=== PATIENT | female | born 1945 | race Caucasian/White ===

== ENCOUNTER 2021-07-20 07:57 | Observation (INO) ==
[2021-07-20] MEDS ORDERED: ASPIRIN CHEW 324 MG PO STA (08:16)
[2021-07-20] MEDS ORDERED: ALBUTEROL 0.5% NEB SOLN 2.5 MG/0.5 ML VIAL NEB STA (08:19)
[2021-07-20] MEDS ORDERED: methylPREDNISolone 125 MG/2 ML VIAL IV STA (08:20)
[2021-07-20 08:34] LABS: Basophils # (auto) 0.02 K/uL (0-0.2); Basophils % (auto) 0.1 %; Eosinophils # (auto) 0.19 K/uL (0-0.5); Eosinophils % (auto) 0.9 %; Hematocrit (blood only) 39.2 % (37-47); Hemoglobin 12.9 g/dL (12.0-16.0); Immature Granulocytes # (auto) 0.24 K/uL (0.00-0.02); Immature Granulocytes % (auto) 1.1 %; Lymphocytes # (auto) 3.37 K/uL (1.2-3.4); Lymphocytes % (auto) 15.4 %; Mean Corpuscular Hemoglobin 29.1 pg (25-34); Mean Corpuscular Hgb Conc 32.9 g/dL (32-36); Mean Corpuscular Volume 88.5 fL (80-100); Mean Platelet Volume 8.5 fL (7.4-10.4); Monocytes # (auto) 1.73 K/uL (0.11-0.59); Monocytes % (auto) 7.9 %; Neutrophils # (auto) 16.38 K/uL (1.4-6.5); Neutrophils % (auto) 74.6 %; Platelet Count 463 K/uL (130-400); RDW Coefficient of Variation 13.7 % (11.5-14.5); RDW Standard Deviation 44.8 fL (36.4-46.3); Red Blood Count 4.43 M/uL (4.2-5.4); White Blood Count 21.93 K/uL (4.8-10.8)
[2021-07-20 08:45] LABS: Partial Thromboplastin Ratio 0.9; Partial Thromboplastin Time 23.6 Seconds (21.0-31.0)
--- NOTE | 2021-07-20 08:49 | XRay Report ---
XR chest 1V portable CLINICAL HISTORY: Dysrhythmia TECHNIQUE: Single frontal radiograph of the chest was obtained. Comparison: None available at the time of this dictation. FINDINGS: No lines and tubes are seen. Calcified aortic knob is seen. The lungs are clear. No evidence of pleur al effusion or pneumothorax. IMPRESSION: No acute chest disease. ACT 112: Negative or not required by law. Electronically signed by: Rick Wade M.D. 07/20/2021 8:48 AM
[2021-07-20 08:52] LABS: Albumin Level 3.3 gm/dl (3.4-5.0); Potassium 3.7 mmol/L (3.5-5.1)
[2021-07-20] MEDS ORDERED: CEFEPIME 2,000 MG/20 ML VIAL IV STA (09:25)
[2021-07-20 09:30] LABS: Influenza A virus by PCR Negative (Neg); Influenza B virus by PCR Negative (Neg); RSV by PCR Negative (Neg); SARS CoV2 RNA(COVID-19) InHosp NEGATIVE (Negative)
--- NOTE | 2021-07-20 09:43 | Emergency Department Note ---
Impression & Plan Pneumonia ED Provider Note CHIEF COMPLAINT: SOB HISTORY OF PRESENT ILLNESS: This 76 yo female patient presents to the emergency department who presents emergency department with complaints of shortness of breath and cough. Patient states she tested positive for influenza about a week ago. She has had a persistent cough and has been unable to see her primary care physician because of the positive testing. She is newer to our area and has only seen this practice 1 time previously to establish. Patient denies vomiting, chest pain, fevers and diarrhea. Her is at home and has r ecovered from the flu already. She did try to go back to work today and was unable to get through the day. REVIEW OF SYSTEMS: A review of systems was performed with positives and pertinent negatives listed in the history of present illness. 10 systems were reviewed and are otherwise negative. ALLERGIES: see below MEDICATIONS: see below PMH: see below SOCIAL HISTORY: see below DDx: Reactive airway disease, pneumonia, pneumothorax, COPD, CHF, infections, cardiac ischemia, pulmonary embolism, musculoskeletal, gastrointestinal, as well as other pathologies. PHYSICAL EXAM: Vital signs reviewed. General: Somewhat appearing 76-year-old female, in no significant distress. HEENT: No scleral icterus, PERRLA, neck supple. Atraumatic. Cardiovascular: Tachycardic and irregular, no extra sounds. Pulmonary: Clear to auscultation bilaterally, normal work of breathing. Dry cough Abdomen: Soft, nontender, nondistended, positive bowel sounds. Musculoskeletal: Atraumatic, no peripheral edema. Neurologic: Patient awake alert and oriented x 3, speech is clear Skin: Warm, dry, no rash EMERGENCY DEPARTMENT COURSE/MDM: This patient was evaluated and appeared to be in no distress. IV access was obtained and laboratory work was drawn. Was placed on the vehicle monitor technician noted to be in an atrial fibrillation with RVR at 114 bpm. Patient has tested negative for influenza at this time. Patient was given 5 mg of IV metoprolol which converted her rhythm to a normal sinus. She was given a dose of IV Solu-Medrol and a DuoNeb treatment. Patient was also given a dose of IV cefepime for pulmonary infiltrate on chest x-ray to my interpretation. Case management was consulted and were able to make follow-up appointment with the patient's PCP, which was the patient's preference. Given the atrial fibrillation on EKG, patient was given first dose of Eliquis and a p.o. dose of metoprolol. Prescriptions were written for antibiotics, Eliquis and metoprolol. She will follow-up with the PCP appointment in short interval and return to the ER for worsening of symptoms or any medical concerns. Patient had a prolonged observation in the emergency department due to transportation difficulties. She is awaiting her 's arrival to pick her up. MONITORING: An order for cardiac monitoring was placed and the patient is noted to be in a atrial fibrillation with RVR at 106 beats per minute. RADIOLOGY: See below EKG: Atrial fibrillation with rapid ventricular response at 114 bpm. Poor R wave progression, normal QTC 435. Normal ST segments. No previous for comparison. DISPOSITION: Home I have personally spent 35 minutes of critical care time in the direct management of this patient. This was a life/limb threatening event. This 35 minutes is in excess of all separately billable procedures. Past Med/Surg History Medical History HLD (hyperlipidemia) OAB (overactive bladder) Surgical History History of back surgery History of blepharoplasty History of bunionectomy History of section History of elbow surgery b/l tendon repair History of fusion of cervical spine History of hernia surgery History of hip surgery benign tumor removal History of hysterectomy History of partial amputation of toe hx of gangrene per pt Family History Sister Alzheimer disease Social History Smoking Status: Never smoker Hx Alcohol Use: No Hx Substance Use: No Preferred Language: Hungarian Communication Ability: Effective Leasing Director Required: No Beliefs That Will Affect Care: None marital status: Current Living Situation: Spouse Feels Safe at Home: Yes Assistive Devices: None Allergies Allergies Allergy/AdvReac Type Severity Reaction Status Date / Time metronidazole [From Flagyl] Allergy Severe hives Verified 07/20/21 16:47 Home Meds Home Medications Medication Instructions Recorded Confirmed Colon Health Probiotic 1 tab PO DAILY 07/20/21 07/20/21 Prevagen 1 tab PO DAILY 07/20/21 07/20/21 aspirin 81 mg tablet,delayed 81 mg PO DAILY 07/20/21 07/20/21 release calcium carbonate 600 mg-vitamin 1 tab PO DAILY 07/20/21 07/20/21 D3 5 mcg (200 unit) tablet coenzyme Q10 30 mg capsule (CoQ-10) 100 mg PO DAILY 07/20/21 07/20/21 krill 1,000 mg-omega-3 230 mg-dha 1 cap PO DAILY 07/20/21 07/20/21 60 qo-wis-mcshnsjad-astaxan capsule (MegaRed Nezperce-3 Krill Oil) polyethylene glycol 3350 17 gram 17 g PO DAILY 07/20/21 07/20/21 oral powder packet (Miralax) rosuvastatin 10 mg tablet 10 mg PO DAILY 07/20/21 07/20/21 trospium 60 mg capsule,extended 60 mg PO DAILY 07/20/21 07/20/21 release 24 hr Previous Rx's Medication Instructions Recorded amoxicillin 875 mg-potassium 1 tab PO BID 4 Days #8 tab 07/23/21 clavulanate 125 mg tablet guaifenesin 200 mg tablet 200 mg PO TID PRN #30 tab 07/23/21 levalbuterol HCl 0.63 mg/3 mL 0.63 mg NEB Q6R PRN #90 ml 07/23/21 solution for nebulization Results & Data (ED) Vital Signs Vital Signs - 24 hr 07/20/21 07:59 Pulse Rate 95 H Pulse Rhythm Regular Pulse Strength Normal Respiratory Rate 20 Respiratory Depth Normal Blood Pressure 148/82 H Blood Pressure Mean 104 Blood Pressure Position Lying Pulse Oximetry 94 Oxygen Delivery Method Room Air Sepsis New/Unexplained Change in Mental Status No Sepsis Action Taken by Nursing No Action Required Home Medications Current Medication List: was personally reviewed by me Laboratory Data Attestation: I reviewed the patient's lab results. Result diagrams: 07/23/21 06:04 07/22/21 12:35 Lab Results 07/20/21 07/20/21 07/20/21 Range/Units 08:15 08:15 08:15 WBC 21.93 H (4.8-10.8) K/uL RBC 4.43 (4.2-5.4) M/uL Hgb 12.9 (12.0-16.0) g/dL Hct 39.2 (37-47) % MCV 88.5 (80-100) fL MCH 29.1 (25-34) pg MCHC 32.9 (32-36) g/dL RDW Std Deviation 44.8 (36.4-46.3) fL RDW Coeff of [place] 13.7 (11.5-14.5) % Plt Count 463 H (130-400) K/uL MPV 8.5 (7.4-10.4) fL Immature Gran % (Auto) 1.1 % Neut % (Auto) 74.6 % Lymph % (Auto) 15.4 % [place] % (Auto) 7.9 % Eos % (Auto) 0.9 % Baso % (Auto) 0.1 % Neut # (Auto) 16.38 H (1.4-6.5) K/uL Lymph # (Auto) 3.37 (1.2-3.4) K/uL [place] # (Auto) 1.73 H (0.11-0.59) K/uL Eos # (Auto) 0.19 (0-0.5) K/uL Baso # (Auto) 0.02 (0-0.2) K/uL Immature Gran # (Auto) 0.24 H (0.00-0.02) K/uL PT 11.0 (9.0-12.0) Seconds INR 1.0 (0.9-1.1) APTT 23.6 (21.0-31.0) Seconds PTT Ratio 0.9 Sodium (136-145) mmol/L Potassium (3.5-5.1) mmol/L Chloride (98-107) mmol/L Carbon Dioxide (21-32) mmol/L Anion Gap (3-11) BUN (6-23) mg/dl Creatinine (0.6-1.2) mg/dl Est Cr Clr Drug Dosing ml/min Est GFR ( Amer) ml/min Est GFR (Non-Af Amer) ml/min BUN/Creatinine Ratio (10-20) Glucose (70-99(Fasting)) mg/dl Lactate (0.4-2.0) mmol/L Calcium (8.5-10.1) mg/dl Magnesium (1.7-2.4) mg/dl Total Bilirubin (0.2-1.0) mg/dl AST (13-39) U/L ALT (7-52) U/L Alkaline Phosphatase (34-104) U/L Troponin I High Sens 16.0 H (0-14) pg/ml Total Protein (6.0-8.3) gm/dl Albumin (3.4-5.0) gm/dl Globulin (2.5-4.0) gm/dl Albumin/Globulin Ratio (0.9-2) TSH (0.300-4.500) uIu/ml SARS-CoV-2 (PCR) (Negative) Influenza Type A (PCR) (Neg) Influenza Type B (PCR) (Neg) RSV (RT-PCR) (Neg) 07/20/21 07/20/21 07/20/21 Range/Units 08:15 08:15 08:27 WBC (4.8-10.8) K/uL RBC (4.2-5.4) M/uL Hgb (12.0-16.0) g/dL Hct (37-47) % MCV (80-100) fL MCH (25-34) pg MCHC (32-36) g/dL RDW Std Deviation (36.4-46.3) fL RDW Coeff of [place] (11.5-14.5) % Plt Count (130-400) K/uL MPV (7.4-10.4) fL Immature Gran % (Auto) % Neut % (Auto) % Lymph % (Auto) % [place] % (Auto) % Eos % (Auto) % Baso % (Auto) % Neut # (Auto) (1.4-6.5) K/uL Lymph # (Auto) (1.2-3.4) K/uL [place] # (Auto) (0.11-0.59) K/uL Eos # (Auto) (0-0.5) K/uL Baso # (Auto) (0-0.2) K/uL Immature Gran # (Auto) (0.00-0.02) K/uL PT (9.0-12.0) Seconds INR (0.9-1.1) APTT (21.0-31.0) Seconds PTT Ratio Sodium 139 (136-145) mmol/L Potassium 3.7 (3.5-5.1) mmol/L Chloride 107 (98-107) mmol/L Carbon Dioxide 23 (21-32) mmol/L Anion Gap 9 (3-11) BUN 23 (6-23) mg/dl Creatinine 0.89 (0.6-1.2) mg/dl Est Cr Clr Drug Dosing 51.1 ml/min Est GFR ( Amer) 73.5 ml/min Est GFR (Non-Af Amer) 63.4 ml/min BUN/Creatinine Ratio 25.8 H (10-20) Glucose 93 (70-99(Fasting)) mg/dl Lactate (0.4-2.0) mmol/L Calcium 8.6 (8.5-10.1) mg/dl Magnesium 2.0 (1.7-2.4) mg/dl Total Bilirubin 0.8 (0.2-1.0) mg/dl AST 15 (13-39) U/L ALT 20 (7-52) U/L Alkaline Phosphatase 56 (34-104) U/L Troponin I High Sens (0-14) pg/ml Total Protein 6.4 (6.0-8.3) gm/dl Albumin 3.3 L (3.4-5.0) gm/dl Globulin 3.1 (2.5-4.0) gm/dl Albumin/Globulin Ratio 1.1 (0.9-2) TSH 2.581 (0.300-4.500) uIu/ml SARS-CoV-2 (PCR) NEGATIVE (Negative) Influenza Type A (PCR) Negative (Neg) Influenza Type B (PCR) Negative (Neg) RSV (RT-PCR) Negative (Neg) 07/20/21 07/20/21 Range/Units 10:14 10:14 WBC (4.8-10.8) K/uL RBC (4.2-5.4) M/uL Hgb (12.0-16.0) g/dL Hct (37-47) % MCV (80-100) fL MCH (25-34) pg MCHC (32-36) g/dL RDW Std Deviation (36.4-46.3) fL RDW Coeff of [place] (11.5-14.5) % Plt Count (130-400) K/uL MPV (7.4-10.4) fL Immature Gran % (Auto) % Neut % (Auto) % Lymph % (Auto) % [place] % (Auto) % Eos % (Auto) % Baso % (Auto) % Neut # (Auto) (1.4-6.5) K/uL Lymph # (Auto) (1.2-3.4) K/uL [place] # (Auto) (0.11-0.59) K/uL Eos # (Auto) (0-0.5) K/uL Baso # (Auto) (0-0.2) K/uL Immature Gran # (Auto) (0.00-0.02) K/uL PT (9.0-12.0) Seconds INR (0.9-1.1) APTT (21.0-31.0) Seconds PTT Ratio Sodium (136-145) mmol/L Potassium (3.5-5.1) mmol/L Chloride (98-107) mmol/L Carbon Dioxide (21-32) mmol/L Anion Gap (3-11) BUN (6-23) mg/dl Creatinine (0.6-1.2) mg/dl Est Cr Clr Drug Dosing ml/min Est GFR ( Amer) ml/min Est GFR (Non-Af Amer) ml/min BUN/Creatinine Ratio (10-20) Glucose (70-99(Fasting)) mg/dl Lactate 0.7 (0.4-2.0) mmol/L Calcium (8.5-10.1) mg/dl Magnesium (1.7-2.4) mg/dl Total Bilirubin (0.2-1.0) mg/dl AST (13-39) U/L ALT (7-52) U/L Alkaline Phosphatase (34-104) U/L Troponin I High Sens 14.1 H (0-14) pg/ml Total Protein (6.0-8.3) gm/dl Albumin (3.4-5.0) gm/dl Globulin (2.5-4.0) gm/dl Albumin/Globulin Ratio (0.9-2) TSH (0.300-4.500) uIu/ml SARS-CoV-2 (PCR) (Negative) Influenza Type A (PCR) (Neg) Influenza Type B (PCR) (Neg) RSV (RT-PCR) (Neg) Administered Medications Discontinued Medications Acetylcysteine (Acetylcysteine 10% Inhal Soln 4 Ml Dispensed By Resp.) 5 ml INH BIDR PALLAVI Stop: 08/21/21 06:59 Last Admin: 07/23/21 07:10 Dose: 5 ml Documented by: [id number] Admin: 07/22/21 19:25 Dose: 5 ml Documented by: [id number] Admin: 07/22/21 07:06 Dose: 5 ml Documented by: [id number] Albuterol (Albuterol 0.5% Neb Soln 2.5 Mg/0.5 Ml Vial) 2.5 mg NEB NOW STA; Protocol Stop: 07/20/21 08:20 Last Admin: 07/20/21 08:26 Dose: 2.5 mg Documented by: [id number] Amoxicillin/Clavulanate Potassium (Amoxicillin/Clavulanate 875 Mg Tab) 1 tab PO BIDM [facility]; Protocol Stop: 07/27/21 08:01 Last Admin: 07/23/21 16:35 Dose: 1 tab Documented by: [id number] Apixaban (Apixaban 5 Mg Tablet) 5 mg PO NOW STA Stop: 07/20/21 12:45 Last Admin: 07/20/21 13:09 Dose: 5 mg Documented by: [id number] Aspirin (Aspirin Chew 324 Mg) 324 mg PO NOW STA Stop: 07/20/21 08:17 Last Admin: 07/20/21 08:25 Dose: 324 mg Documented by: [id number] Aspirin (Aspirin 81 Mg Ectab) 81 mg PO DAILY [facility] Stop: 08/20/21 08:59 Last Admin: 07/23/21 08:21 Dose: 81 mg Documented by: [id number] Cosigned by: [id number] Admin: 07/22/21 08:17 Dose: 81 mg Documented by: [id number] Admin: 07/21/21 08:39 Dose: 81 mg Documented by: [id number] Azithromycin (Azithromycin 250 Mg Tab) 500 mg PO HS [facility] Stop: 07/22/21 21:01 Last Admin: 07/22/21 22:43 Dose: 500 mg Documented by: [id number] Admin: 07/21/21 20:40 Dose: 500 mg Documented by: [id number] Admin: 07/20/21 20:16 Dose: 500 mg Documented by: [id number] Benzonatate (Benzonatate 100 Mg Capsule) 100 mg PO TID [facility] Stop: 08/19/21 20:59 Last Admin: 07/23/21 15:54 Dose: Not Given Documented by: [id number] Admin: 07/23/21 08:21 Dose: 100 mg Documented by: [id number] Cosigned by: [id number] Admin: 07/22/21 22:43 Dose: 100 mg Documented by: [id number] Admin: 07/22/21 14:10 Dose: 100 mg Documented by: [id number] Admin: 07/22/21 08:17 Dose: 100 mg Documented by: [id number] Admin: 07/21/21 20:40 Dose: 100 mg Documented by: [id number] Admin: 07/21/21 15:30 Dose: Not Given Documented by: [id number] Admin: 07/21/21 08:39 Dose: 100 mg Documented by: [id number] Admin: 07/20/21 20:29 Dose: 100 mg Documented by: [id number] Dextromethorphan Polymer Complex (Dextromethorphan Polymr Complx 30 Mg/5 Ml Udp) 30 mg PO Q12H PRN PRN Reason: Cough Stop: 08/19/21 18:38 Last Admin: 07/22/21 14:11 Dose: 30 mg Documented by: [id number] Admin: 07/21/21 15:34 Dose: 30 mg Documented by: [id number] Admin: 07/21/21 06:08 Dose: 30 mg Documented by: [id number] Enoxaparin Sodium (Enoxaparin Inj 40 Mg/0.4 Ml Syr) 40 mg SQ QAM PALLAVI Stop: 08/20/21 08:59 Last Admin: 07/23/21 08:22 Dose: 40 mg Documented by: [id number] Cosigned by: [id number] Admin: 07/22/21 10:59 Dose: 40 mg Documented by: [id number] Admin: 07/21/21 08:39 Dose: 40 mg Documented by: [id number] Guaifenesin/Codeine Phosphate (Guaifenesin/Codeine 100mg/10mg 5ml Udc) 10 ml PO HS PALLAVI Stop: 08/19/21 20:59 Last Admin: 07/22/21 22:43 Dose: 10 ml Documented by: [id number] Admin: 07/21/21 20:45 Dose: 10 ml Documented by: [id number] Admin: 07/20/21 20:29 Dose: 10 ml Documented by: [id number] Cefepime HCl (Maxipime) 2,000 mg in 20 mls @ 5 mls/min IV NOW STA; Protocol Stop: 07/20/21 09:28 Last Admin: 07/20/21 10:27 Dose: 5 mls/min Documented by: [id number] Piperacillin Sod/Tazobactam (Sod 3.375 gm/ Dextrose) 115 mls @ 230 mls/hr IV NOW ONE; Protocol Stop: 07/20/21 19:59 Last Infusion: 07/20/21 23:30 Dose: 0 mls/hr Documented by: [id number] Admin: 07/20/21 20:18 Dose: 230 mls/hr Documented by: [id number] Piperacillin Sod/Tazobactam (Sod 3.375 gm/ Dextrose) 115 mls @ 28.75 mls/hr IV Q8H PALLAVI; Protocol Stop: 07/28/21 00:00 Last Infusion: 07/23/21 13:20 Dose: 0 mls/hr Documented by: [id number] Admin: 07/23/21 08:20 Dose: 28.8 mls/hr Documented by: [id number] Cosigned by: [id number] Infusion: 07/23/21 05:10 Dose: 0 mls/hr Documented by: [id number] Admin: 07/23/21 00:18 Dose: 28.8 mls/hr Documented by: [id number] Infusion: 07/22/21 22:03 Dose: 0 mls/hr Documented by: [id number] Admin: 07/22/21 15:47 Dose: 28.8 mls/hr Documented by: [id number] Infusion: 07/22/21 11:36 Dose: 0 mls/hr Documented by: [id number] Admin: 07/22/21 07:28 Dose: 28.8 mls/hr Documented by: [id number] Infusion: 07/22/21 07:22 Dose: 0 mls/hr Documented by: [id number] Admin: 07/22/21 03:01 Dose: 28.8 mls/hr Documented by: [id number] Infusion: 07/21/21 20:43 Dose: 0 mls/hr Documented by: [id number] Admin: 07/21/21 15:38 Dose: 28.8 mls/hr Documented by: [id number] Infusion: 07/21/21 13:07 Dose: 0 mls/hr Documented by: [id number] Admin: 07/21/21 08:38 Dose: 28.8 mls/hr Documented by: [id number] Infusion: 07/21/21 04:00 Dose: 0 mls/hr Documented by: [id number] Admin: 07/20/21 23:58 Dose: 28.8 mls/hr Documented by: [id number] Ioversol (Optiray 320 125ml) 120 ml IV ONCE ONE Stop: 07/20/21 11:40 Last Admin: 07/20/21 11:40 Dose: 120 ml Documented by: [id number] Levalbuterol HCl (Levalbuterol Hcl 0.63 Mg/3 Ml Neb) 0.63 mg NEB Q6R PALLAVI; Protocol Stop: 08/19/21 18:59 Last Admin: 07/23/21 13:40 Dose: 0.63 mg Documented by: [id number] Admin: 07/23/21 07:10 Dose: 0.63 mg Documented by: [id number] Admin: 07/23/21 00:33 Dose: 0.63 mg Documented by: [id number] Admin: 07/22/21 19:25 Dose: 0.63 mg Documented by: [id number] Admin: 07/22/21 12:07 Dose: 0.63 mg Documented by: [id number] Admin: 07/22/21 07:06 Dose: 0.63 mg Documented by: [id number] Admin: 07/21/21 23:45 Dose: 0.63 mg Documented by: [id number] Admin: 07/21/21 19:40 Dose: 0.63 mg Documented by: [id number] Admin: 07/21/21 12:26 Dose: 0.63 mg Documented by: [id number] Admin: 07/21/21 06:58 Dose: 0.63 mg Documented by: [id number] Admin: 07/21/21 00:03 Dose: 0.63 mg Documented by: [id number] Admin: 07/20/21 19:29 Dose: 0.63 mg Documented by: [id number] Methylprednisolone (Methylprednisolone 125 Mg/2 Ml Vial) 60 mg IV NOW STA Stop: 07/20/21 08:21 Last Admin: 07/20/21 08:24 Dose: 60 mg Documented by: [id number] Metoprolol Succinate (Metoprolol Succ 25mg Ext Rel Tab) 25 mg PO NOW STA Stop: 07/20/21 12:46 Last Admin: 07/20/21 13:09 Dose: 25 mg Documented by: [id number] Miscellaneous (Trospium~Order Awaiting Action) 1 ea N/A QS PALLAVI Stop: 08/19/21 19:14 Last Admin: 07/23/21 15:55 Dose: Not Given Documented by: [id number] Admin: 07/23/21 08:25 Dose: Not Given Documented by: [id number] Admin: 07/23/21 01:13 Dose: 1 ea Documented by: [id number] Admin: 07/22/21 15:43 Dose: Not Given Documented by: [id number] Admin: 07/22/21 07:22 Dose: Not Given Documented by: [id number] Admin: 07/22/21 03:04 Dose: Not Given Documented by: [id number] Admin: 07/21/21 17:05 Dose: Not Given Documented by: [id number] Admin: 07/21/21 10:46 Dose: Not Given Documented by: [id number] Admin: 07/21/21 00:01 Dose: Not Given Documented by: [id number] Admin: 07/20/21 20:25 Dose: Not Given Documented by: [id number] Multivitamins/Minerals (Calcium 600mg + Vit D 400 Iu Tab) 1 tab PO DAILY PALLAVI Stop: 08/20/21 08:59 Last Admin: 07/23/21 08:22 Dose: 1 tab Documented by: [id number] Cosigned by: [id number] Admin: 07/22/21 08:17 Dose: 1 tab Documented by: [id number] Admin: 07/21/21 08:39 Dose: 1 tab Documented by: [id number] Polyethylene Glycol (Polyethylene (Miralax) 17 Gm Pack) 17 gm PO DAILY PALLAVI Stop: 08/20/21 08:59 Last Admin: 07/23/21 08:24 Dose: 17 gm Documented by: [id number] Cosigned by: [id number] Admin: 07/22/21 08:18 Dose: 17 gm Documented by: [id number] Admin: 07/21/21 08:40 Dose: 17 gm Documented by: [id number] Rosuvastatin Calcium (Rosuvastatin Calcium 10 Mg Tab) 10 mg PO DAILY PALLAVI Stop: 08/20/21 08:59 Last Admin: 07/23/21 08:24 Dose: 10 mg Documented by: [id number] Cosigned by: [id number] Admin: 07/22/21 08:17 Dose: 10 mg Documented by: [id number] Admin: 07/21/21 08:39 Dose: 10 mg Documented by: [id number] Imaging Data Radiologist's Impression: Chest X-Ray 07/20/21 08:16 XR chest 1V portable CLINICAL HISTORY: Dysrhythmia TECHNIQUE: Single frontal radiograph of the chest was obtained. Comparison: None available at the time of this dictation. FINDINGS: No lines and tubes are seen. Calcified aortic knob is seen. The lungs are clear. No evidence of pleural effusion or pneumothorax. IMPRESSION: No acute chest disease. ACT 112: Negative or not required by law. Electronically signed by: Rick Wade M.D. 07/20/2021 8:48 AM Blood Pressure Blood Pressure Findings: Normal blood pressure Discharge Plan Visit Data Chief Complaint: Shortness of Breath/Dyspnea Stated Complaint: SOB ED Provider: Chalo Martinez Discharge Problem: Pneumonia Patient Disposition: Admitted As Inpatient Condition: Good Discharge Instructions Interventions: ED Discharge Assessment Last Done: 07/20/21 18:31 Discharge Problem: Pneumonia Qualifiers: Pneumonia type: due to unspecified organism Laterality: bilateral Lung location: lower lobe of lung Qualified Code(s): J18.9 - Pneumonia, unspecified organism
[2021-07-20 09:51] LABS: Albumin Globulin Ratio 1.1 (0.9-2); BUN Creatinine Ratio 25.8 (10-20); Bilirubin,Total 0.8 mg/dl (0.2-1.0); Calcium 8.6 mg/dl (8.5-10.1); Creatinine Clr Calc Pharmacy 51.1 ml/min; Est GFR (African American) 73.5 ml/min; Est GFR (Non-African American) 63.4 ml/min; Globulin 3.1 gm/dl (2.5-4.0); Total Protein 6.4 gm/dl (6.0-8.3)
[2021-07-20] MEDS ORDERED: OPTIRAY 320 125ml IV ONE (11:39)
[2021-07-20] MEDS ORDERED: METOPROLOL TARTRATE 1 MG/ML VIAL IV, SCH (12:00)
[2021-07-20] MEDS ORDERED: METOPROLOL TARTRATE 1 MG/ML VIAL IV PRN (12:00)
--- NOTE | 2021-07-20 12:04 | CT Scan Report ---
CT ANGIOGRAPHY OF THE CHEST, PULMONARY EMBOLUS PROTOCOL CLINICAL HISTORY: Shortness of breath. Evaluate for pulmonary embolus. COMPARISON STUDY: Chest radiograph performed earlier today. TECHNIQUE: Following IV administration of 120 mL of Optiray, helical axial images of the chest were o btained utilizing the pulmonary embolus protocol. Maximal intensity projections and sagittal and cor onal reformats were viewed on an independent 3D workstation. IV contrast was administered without co mplication. Automated exposure control was utilized for the study. A dose lowering technique was ut ilized adhering to the principles of ALARA. CT DOSE: 245.46 mGycm FINDINGS: No pulmonary emboli are identified. The size of the heart is normal. There is no thoracic aortic dissection. No enlarged thoracic lymph nodes are present. No pneumomediastinum is present. The re is no pneumothorax or pleural effusion. Moderate multifocal tree-in-bud nodules are noted with mor e confluent consolidation within the left lower lobe. There is bilateral lower lobe and right middle lobe bronchial wall thickening and multifocal secretions. No cavitation is present. No acute fracture or suspicious lesion within the visualized bony thorax. There is a 2.3 cm hepatic cyst. IMPRESSION: 1. No pulmonary emboli identified. 2. Moderate multifocal tree-in-bud nodules with bilateral lower lobe consolidation, greater on the le ft. Associated bronchial wall thickening and secretions within the bilateral lower lobe and right mid dle lobe bronchi. The findings favor an infectious process. Other etiologies such as aspiration pneum onitis are within the differential but considered less likely. ACT 112: Negative or not required by law. Electronically signed by: Mike Mendosa M.D. 07/20/2021 12:02 PM
[2021-07-20] MEDS ORDERED: APIXABAN 5 MG TABLET PO STA (12:44)
[2021-07-20] MEDS ORDERED: METOPROLOL SUCC 25MG EXT REL TAB PO STA (12:45)
--- NOTE | 2021-07-20 15:38 | Electrocardiogram Report ---
Test Reason : Blood Pressure : / mmHG Vent. Rate : 114 BPM Atrial Rate : 147 BPM P-R Int : 000 ms QRS Dur : 062 ms QT Int : 316 ms P-R-T Axes : 000 045 -79 degrees QTc Int : 435 ms Atrial fibrillation with rapid ventricular response Poor R wave progression, consider anterior HI vs. lead placement vs. LVH Abnormal ECG No previous ECGs available Confirmed by Chalo Salinas ([id number]) on 07/20/2021 3:37:43 PM Referred By: Confirmed By:Chalo Salinas
--- NOTE | 2021-07-20 16:23 | Emergency Department Note ---
ED Visit Note The patient was seen initially by Dr. Elizondo. The patient was felt to be a good candidate for inpatient management because of a pulmonary infection as well as arrhythmia which would be a new onset for the patient. The patient was written to be discharged home and started on medications for dysrhythmia as well as pulmonary infection. She was treated in our emergency department with IV antibiotics. She was reevaluated by the nursing staff prior to discharge. The patient initially did not wish to stay in the hospital even though it was r ecommended by Dr. Elizondo. The patient's family members did get in contact with nursing and felt the patient was not a good candidate for outpatient management and asked us to discuss the case with the hospitalist group. I discussed this case with the on-call [facility] hospitalist group. I discussed the case with Mary. They have agreed to evaluate the patient in the emergency department for further management and disposition. The patient's EKG was thought to be consistent with atrial fibrillation. This EKG was reviewed by Dr. Salinas. The patient appears to have episodes of MAT on cardiac monitoring. Certainly this could find more to the patient's pulmonary status not being well enough for outpatient management. I discussed this finding with the hospitalist team as well. . : Pneumonia Qualifiers: Pneumonia type: due to unspecified organism Laterality: bilateral Lung location: lower lobe of lung Qualified Code(s): J18.9 - Pneumonia, unspecified organism
--- NOTE | 2021-07-20 17:44 | History & Physical Report ---
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 Bilateral lower lobe pneumonia with associated bronchial wall thickening Recent Influenza positive - tested positive at OSH 07/14 leukocytosis admit to pcu completed course of tamiflu and 2 prednisone courses as outpt IV Zosyn and oral azithromycin MRSA Screen and sputum culture anti tussives and levalbuterol QID incentive spirometry Wandering atrial pacemaker initial ecg concerning for afib after further review pt with at least 3 morphological p waves, appears to be compatible with wandering atrial pacemaker discussed and reviewed with Dr. Rico - no formal consult needed at this time no other underlying pulmonary disease known monitor on tele HLD continue statin Dvt ppx: SQ Lovenox Dispo: PCU FULL CODE PCP: Tyrone Pt was seen and examined in collaboration with Dr. Beltran, please see addendum History of Present Illness Chief Complaint: Cough x 4 weeks. Primary Care Provider: Crystal Hansen, DO This is a 76-year-old female who has significant past medical history of HLD, OAB, history of gangrenous left toe status post partial amputation who presents to ED secondary to cough x4 weeks. Patient developed lower respiratory symptoms on 06/25/2021. She developed a dry cough, shortness with exertion and chills. Over the last 4 weeks she has seen providers and was treated with 2 courses of prednisone as well as antibiotic. She does not recall the name of the antibiotic. She has a known sick contact with her . Her was recently hospitalized for influenza. Patient also subsequently tested positive for influenza on 07/14. She then completed a course of Tamiflu. She denies any documented fever but complains of being chilled. She denies any sweats, lightheadedness, dizziness, syncope, chest pain, hemoptysis, shortness of breath at rest, nausea, vomiting, abdominal pain, change in bowel or urinary habits. She is constipated at baseline and takes MiraLAX on a regular basis. Overall she feels generally fatigued and weak from coughing. She also complains of chest soreness from coughing but no chest pain at rest. She states she gets bronchitis every year. In ED initially she was tachycardic and EKG was initially read as atrial fibrillation. She had a leukocytosis of 20 1.93K with a left shift. Her CMP was generally unremarkable. Her initial high-sensitivity troponin was elevated at 14.1. She tested negative for SARS-CoV-2 and influenza. Her chest CTA was negative for PE but did reveal moderate multifocal tree-in-bud nodules with bilateral lower lobe consolidation greater on the left. Concern for infectious process or possible aspiration pneumonitis. She was started on antibiotics and plan was to pt to d/c to home. Initial ecg read afib and she was given metoprolol and eliquis. However after further review it appears it is MAT and not actually afib. Allergies Allergy/AdvReac Type Severity Reaction Status Date / Time metronidazole [From Flagyl] Allergy Severe hives Verified 07/20/21 16:47 Home Medications Medication Instructions Recorded Confirmed Type Colon Health Probiotic 1 tab PO DAILY 07/20/21 07/20/21 History Prevagen 1 tab PO DAILY 07/20/21 07/20/21 History aspirin 81 mg tablet,delayed 81 mg PO DAILY 07/20/21 07/20/21 History release calcium carbonate 600 mg-vitamin 1 tab PO DAILY 07/20/21 07/20/21 History D3 5 mcg (200 unit) tablet coenzyme Q10 30 mg capsule (CoQ-10) 100 mg PO DAILY 07/20/21 07/20/21 History krill 1,000 mg-omega-3 230 mg-dha 1 cap PO DAILY 07/20/21 07/20/21 History 60 pm-oar-uonauxrxp-astaxan capsule (MegaRed [place]-3 Krill Oil) polyethylene glycol 3350 17 gram 17 g PO DAILY 07/20/21 07/20/21 History oral powder packet (Miralax) rosuvastatin 10 mg tablet 10 mg PO DAILY 07/20/21 07/20/21 History trospium 60 mg capsule,extended 60 mg PO DAILY 07/20/21 07/20/21 History release 24 hr Past Med/Surg History Medical History (Updated 07/20/21 @ 17:53 by Mary Ballard PA-C) HLD (hyperlipidemia) OAB (overactive bladder) Surgical History (Updated 07/20/21 @ 17:39 by Mary Ballard PA-C) History of back surgery History of blepharoplasty History of bunionectomy History of section History of elbow surgery b/l tendon repair History of fusion of cervical spine History of hernia surgery History of hip surgery benign tumor removal History of hysterectomy History of partial amputation of toe hx of gangrene per pt Family History (Updated 07/20/21 @ 17:39 by Mary Ballard PA-C) Sister Alzheimer disease Social History (Updated 07/20/21 @ 17:39 by Mary Ballard PA-C) Smoking Status: Never smoker Hx Alcohol Use: No Hx Substance Use: No Preferred Language: Greenlandic Communication Ability: Effective 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 Beliefs That Will Affect Care: None marital status: Current Living Situation: Spouse Other Information That Helps Us Care for You: No Feels Safe at Home: Yes Safety Concerns: Feels Safe At This Time Assistive Devices: Denture - Upper, Denture - Lower and Glasses Review of Systems Review of Systems: All systems reviewed & are unremarkable except as noted in HPI & below Physical Exam Physical Exam: Constitutional: WD/WN, Thin, vitals as above, NAD, sitting up in bed, pleasant, conversing easily Head: Normocephalic, Atraumatic Eyes: PERRL, conjunctivae normal, anicteric sclerae ENMT: external ear and nose normal, oropharynx normal Neck: trachea midline, no thyromegaly normal visual inspection Respiratory: +harsh cough on exam, normal respiratory effort, lungs clear to auscultation, no wheeze, rales, rhonchi. Normal insp/exp effort, no accessory muscle use Cardiovascular: RRR, no murmur, no edema Vessels: no JVD or carotid bruit Chest: normal inspection of chest Abdomen: normal bowel sounds, soft, nontender, no hepatosplenomegaly Musculoskeletal: no cyanosis or clubbing, extremities motor strength 5/5 Skin: no rashes, warm and dry normal turgor Neurologic: PERRL, EOMI, accommodation nl, no face palsy, no dysarthria CN's II-XI intact bilaterally and moves all extremities Psychiatric: A+Ox3, euthymic affect Lymphatic: no cervical or axillary lymphadenopathy : deferred Results & Data Results & [facility] ([facility]) Vital Signs (Past 12 Hours) Vital Signs Temp Pulse Resp BP Pulse Ox 07/20/21 17:15 59 L 22 96 07/20/21 17:00 65 23 126/75 94 07/20/21 16:45 67 20 96 07/20/21 16:30 58 L 24 137/83 95 07/20/21 16:20 36.6 C 07/20/21 16:15 65 22 95 07/20/21 16:00 61 17 135/86 07/20/21 15:45 60 21 92 07/20/21 15:43 66 22 109/73 93 07/20/21 14:15 63 18 07/20/21 14:00 65 19 117/67 95 07/20/21 13:30 72 25 H 136/80 07/20/21 13:00 68 24 125/82 07/20/21 12:30 74 26 H 115/82 07/20/21 12:00 70 24 128/81 94 07/20/21 11:00 79 19 123/71 92 07/20/21 10:31 86 21 119/68 91 07/20/21 10:00 72 21 122/82 92 07/20/21 09:30 106 H 27 H 154/74 H 93 07/20/21 09:00 83 22 125/76 90 07/20/21 08:30 87 15 135/84 99 07/20/21 07:59 95 H 20 148/82 H 94 Diagnostic Findings Chest X-Ray 07/20/21 08:16 XR chest 1V portable CLINICAL HISTORY: Dysrhythmia TECHNIQUE: Single frontal radiograph of the chest was obtained. Comparison: None available at the time of this dictation. FINDINGS: No lines and tubes are seen. Calcified aortic knob is seen. The lungs are clear. No evidence of pleural effusion or pneumothorax. IMPRESSION: No acute chest disease. ACT 112: Negative or not required by law. Electronically signed by: Rick Wade M.D. 07/20/2021 8:48 AM Chest CTA 07/20/21 09:17 CT ANGIOGRAPHY OF THE CHEST, PULMONARY EMBOLUS PROTOCOL CLINICAL HISTORY: Shortness of breath. Evaluate for pulmonary embolus. COMPARISON STUDY: Chest radiograph performed earlier today. TECHNIQUE: Following IV administration of 120 mL of Optiray, helical axial images of the chest were obtained utilizing the pulmonary embolus protocol. Maximal intensity projections and sagittal and coronal reformats were viewed on an independent 3D workstation. IV contrast was administered without complication. Automated exposure control was utilized for the study. A dose lowering technique was utilized adhering to the principles of ALARA. CT DOSE: 245.46 mGycm FINDINGS: No pulmonary emboli are identified. The size of the heart is normal. There is no thoracic aortic dissection. No enlarged thoracic lymph nodes are present. No pneumomediastinum is present. There is no pneumothorax or pleural effusion. Moderate multifocal tree-in-bud nodules are noted with more confluent consolidation within the left lower lobe. There is bilateral lower lobe and right middle lobe bronchial wall thickening and multifocal secretions. No cavitation is present. No acute fracture or suspicious lesion within the visualized bony thorax. There is a 2.3 cm hepatic cyst. IMPRESSION: 1. No pulmonary emboli identified. 2. Moderate multifocal tree-in-bud nodules with bilateral lower lobe consolidation, greater on the left. Associated bronchial wall thickening and secretions within the bilateral lower lobe and right middle lobe bronchi. The findings favor an infectious process. Other etiologies such as aspiration pneumonitis are within the differential but considered less likely. ACT 112: Negative or not required by law. Electronically signed by: Mike Mendosa M.D. 07/20/2021 12:02 PM Medications Administered Medication List Discontinued Medications Albuterol (Albuterol 0.5% Neb Soln 2.5 Mg/0.5 Ml Vial) 2.5 mg NEB NOW STA; Protocol Stop: 07/20/21 08:20 Last Admin: 07/20/21 08:26 Dose: 2.5 mg Documented by: [id number] Apixaban (Apixaban 5 Mg Tablet) 5 mg PO NOW STA Stop: 07/20/21 12:45 Last Admin: 07/20/21 13:09 Dose: 5 mg Documented by: [id number] Aspirin (Aspirin Chew 324 Mg) 324 mg PO NOW STA Stop: 07/20/21 08:17 Last Admin: 07/20/21 08:25 Dose: 324 mg Documented by: [id number] Cefepime HCl (Maxipime) 2,000 mg in 20 mls @ 5 mls/min IV NOW STA; Protocol Stop: 07/20/21 09:28 Last Admin: 07/20/21 10:27 Dose: 5 mls/min Documented by: [id number] Ioversol (Optiray 320 125ml) 120 ml IV ONCE ONE Stop: 07/20/21 11:40 Last Admin: 07/20/21 11:40 Dose: 120 ml Documented by: [id number] Methylprednisolone (Methylprednisolone 125 Mg/2 Ml Vial) 60 mg IV NOW STA Stop: 07/20/21 08:21 Last Admin: 07/20/21 08:24 Dose: 60 mg Documented by: [id number] Metoprolol Succinate (Metoprolol Succ 25mg Ext Rel Tab) 25 mg PO NOW STA Stop: 07/20/21 12:46 Last Admin: 07/20/21 13:09 Dose: 25 mg Documented by: [id number] ECG Rate (beats per minute): 114 Rhythm: other (MAT) COVID-19 Results Results COVID-19 Adm Lab Results: RBC 4.43 M/uL (4.2-5.4) 07/20/21 WBC 21.93 K/uL (4.8-10.8) H 07/20/21 Hgb 12.9 g/dL (12.0-16.0) 07/20/21 Hct 39.2 % (37-47) 07/20/21 Plt Count 463 K/uL (130-400) H 07/20/21 Neutrophils (%) (Auto) 74.6 % 07/20/21 Lymphocytes (%) (Auto) 15.4 % 07/20/21 Monocytes # (Auto) 1.73 K/uL (0.11-0.59) H 07/20/21 Eosinophils # (Auto) 0.19 K/uL (0-0.5) 07/20/21 Immature Granulocyte % (Auto) 1.1 % 07/20/21 Neutrophils # (Auto) 16.38 K/uL (1.4-6.5) H 07/20/21 Lymphocytes # (Auto) 3.37 K/uL (1.2-3.4) 07/20/21 Monocytes # (Auto) 1.73 K/uL (0.11-0.59) H 07/20/21 Eosinophils # (Auto) 0.19 K/uL (0-0.5) 07/20/21 Basophils # (Auto) 0.02 K/uL (0-0.2) 07/20/21 Immature Granulocyte # (Auto) 0.24 K/uL (0.00-0.02) H 07/20/21 Na 139 mmol/L (136-145) 07/20/21 K 3.7 mmol/L (3.5-5.1) 07/20/21 Cl 107 mmol/L (98-107) 07/20/21 CO2 23 mmol/L (21-32) 07/20/21 Anion Gap 9 (3-11) 07/20/21 BUN 23 mg/dl (6-23) 07/20/21 Creatinine 0.89 mg/dl (0.6-1.2) 07/20/21 BUN/Creatinine Ratio 25.8 (10-20) H 07/20/21 Glucose Level 93 mg/dl (70-99(Fasting)) 07/20/21 Ca 8.6 mg/dl (8.5-10.1) 07/20/21 Total Bilirubin 0.8 mg/dl (0.2-1.0) 07/20/21 AST/SGOT 15 U/L (13-39) 07/20/21 ALT/SGPT 20 U/L (7-52) 07/20/21 Alkaline Phosphatase 56 U/L (34-104) 07/20/21 Total Protein 6.4 gm/dl (6.0-8.3) 07/20/21 Albumin 3.3 gm/dl (3.4-5.0) L 07/20/21 Globulin 3.1 gm/dl (2.5-4.0) 07/20/21 Albumin/Globulin Ratio 1.1 (0.9-2) 07/20/21 Procalcitonin 0.12 ng/ml (0-0.5) 07/20/21 PTT 23.6 Seconds (21.0-31.0) 07/20/21 INR 1.0 (0.9-1.1) 07/20/21 COVID-19 PCR NEGATIVE (Negative) 07/20/21 Influenza Virus Type A (PCR) Negative (Neg) 07/20/21 Influenza Virus Type B (PCR) Negative (Neg) 07/20/21 Micro Respiratory Specimen 07/20/21 Chest X-Ray 07/20/21 Code Status & VTE Plan Code Status FULL CODE VTE Prophylaxis Plan VTE Prophylaxis will be ordered: Yes Supervising Physician Co-Signing Physician Notes I have seen and examined the patient and have discussed the case with the provider above. I agree with the assessment and plan as stated. 76 yo F presents with persistent cough and SOB, essentially feeling as if she failed outpatient therapy. She did feel good and then worse again, therefore, superimposed secondary bacterial pneumonia is possible (although procalcitonin is negative), in addition to possible aspiration. Agree with Zosyn and azithromycin. Add vanc if sputum culture positive for MRSA. My physical exam reflects that above. Labs, imaging studies reviewed. Blood cultures pending. Cont to monitor clinical response to therapy. Devin, DO
[2021-07-20] MEDS ORDERED: MAGNESIUM HYDROXIDE SUSP 30 ML UDC PO PRN (18:39)
[2021-07-20] MEDS ORDERED: ALUMINUM/MAGNESIUM SUSP 30 ML UDC PO PRN (18:39)
[2021-07-20] MEDS ORDERED: ONDANSETRON INJ 2 MG/ML 2 ML VIAL IV PRN (18:39)
[2021-07-20] MEDS ORDERED: ACETAMINOPHEN 325 MG TAB PO PRN (18:39)
[2021-07-20] MEDS ORDERED: POLYETHYLENE (MIRALAX) 17 GM PACK PO PRN (18:39)
[2021-07-20] MEDS ORDERED: PIPERACILL/TAZOBAC CONSULT ACTIVE PRN (18:39)
[2021-07-20] MEDS: LEVALBUTEROL HCL 0.63 MG/3 ML NEB NEB SCH (19:29)
[2021-07-20] MEDS ORDERED: PIPERACILLIN/TAZOBACTAM 3.375 GM in DEXTROSE 5% 100 ML IV ONE (19:30)
[2021-07-20] MEDS: AZITHROMYCIN 250 MG TAB PO SCH (20:16)
[2021-07-20] MEDS: TROSPIUM~ORDER AWAITING ACTION SCH (20:25)
[2021-07-20] MEDS: BENZONATATE 100 MG CAPSULE PO SCH (20:29)
[2021-07-20] MEDS: guaiFENesin/CODEINE 100MG/10MG 5ML UDC PO SCH (20:29)
[2021-07-20] MEDS: PIPERACILLIN/TAZOBACTAM 3.375 GM in DEXTROSE 5% 100 ML IV SCH (23:58)
[2021-07-21] MEDS: TROSPIUM~ORDER AWAITING ACTION SCH ×3 (00:01→17:05)
[2021-07-21] MEDS: LEVALBUTEROL HCL 0.63 MG/3 ML NEB NEB SCH ×5 (00:03→23:45)
[2021-07-21] MEDS: DEXTROMETHORPHAN POLYMR COMPLX 30 MG/5 ML UDP PO PRN ×2 (06:08→15:34)
[2021-07-21 07:08] LABS: Basophils # (auto) 0.02 K/uL (0-0.2); Basophils % (auto) 0.1 %; Eosinophils # (auto) 0.06 K/uL (0-0.5); Eosinophils % (auto) 0.3 %; Hematocrit (blood only) 36.9 % (37-47); Immature Granulocytes # (auto) 0.13 K/uL (0.00-0.02); Immature Granulocytes % (auto) 0.7 %; Lymphocytes # (auto) 2.25 K/uL (1.2-3.4); Lymphocytes % (auto) 11.4 %; Mean Corpuscular Hemoglobin 28.8 pg (25-34); Mean Corpuscular Hgb Conc 32.5 g/dL (32-36); Mean Corpuscular Volume 88.5 fL (80-100); Mean Platelet Volume 8.5 fL (7.4-10.4); Monocytes # (auto) 1.36 K/uL (0.11-0.59); Monocytes % (auto) 6.9 %; Neutrophils # (auto) 15.96 K/uL (1.4-6.5); Neutrophils % (auto) 80.6 %; Platelet Count 441 K/uL (130-400); RDW Coefficient of Variation 13.7 % (11.5-14.5); RDW Standard Deviation 44.8 fL (36.4-46.3); Red Blood Count 4.17 M/uL (4.2-5.4); White Blood Count 19.78 K/uL (4.8-10.8)
[2021-07-21 07:25] LABS: BUN Creatinine Ratio 22.9 (10-20); Bilirubin,Total 0.6 mg/dl (0.2-1.0); Calcium 8.7 mg/dl (8.5-10.1); Creatinine Clr Calc Pharmacy 42.6 ml/min; Est GFR (African American) 60.2 ml/min; Est GFR (Non-African American) 51.9 ml/min; Globulin 2.9 gm/dl (2.5-4.0); Magnesium 2.2 mg/dl (1.7-2.4); Potassium 4.1 mmol/L (3.5-5.1); Total Protein 5.9 gm/dl (6.0-8.3)
[2021-07-21] MEDS: PIPERACILLIN/TAZOBACTAM 3.375 GM in DEXTROSE 5% 100 ML IV SCH ×2 (08:38→15:38)
[2021-07-21] MEDS: CALCIUM 600MG + VIT D 400 IU TAB PO SCH (08:39)
[2021-07-21] MEDS: ENOXAPARIN INJ 40 MG/0.4 ML SYR SQ SCH (08:39)
[2021-07-21] MEDS: ROSUVASTATIN CALCIUM 10 MG TAB PO SCH (08:39)
[2021-07-21] MEDS: ASPIRIN 81 MG ECTAB PO SCH (08:39)
[2021-07-21] MEDS: BENZONATATE 100 MG CAPSULE PO SCH ×3 (08:39→20:40)
[2021-07-21] MEDS: POLYETHYLENE (MIRALAX) 17 GM PACK PO SCH (08:40)
--- NOTE | 2021-07-21 09:26 | Electrocardiogram Report ---
Test Reason : Blood Pressure : / mmHG Vent. Rate : 062 BPM Atrial Rate : 062 BPM P-R Int : 164 ms QRS Dur : 066 ms QT Int : 438 ms P-R-T Axes : 086 055 057 degrees QTc Int : 444 ms Normal sinus rhythm Normal ECG When compared with ECG of 20-JUL-2021 16:27, (unconfirmed) Premature atrial complexes are no longer Present Confirmed by Chalo Salinas ([id number]) on 07/21/2021 9:26:11 AM Referred By: REFERRED SELF Confirmed By:Chalo Salinas
--- NOTE | 2021-07-21 09:35 | Electrocardiogram Report ---
Test Reason : Blood Pressure : / mmHG Vent. Rate : 061 BPM Atrial Rate : 061 BPM P-R Int : 160 ms QRS Dur : 060 ms QT Int : 416 ms P-R-T Axes : 093 040 002 degrees QTc Int : 418 ms Sinus rhythm with Premature atrial complexes Otherwise normal ECG When compared with ECG of 20-JUL-2021 08:07, Sinus rhythm has replaced Atrial fibrillation Vent. rate has decreased BY 53 BPM Confirmed by Chalo Salinas ([id number]) on 07/21/2021 9:34:58 AM Referred By: REFERRED SELF Confirmed By:Chalo Salinas
--- NOTE | 2021-07-21 18:58 | Hospitalist Progress Note ---
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 Bilateral lower lobe pneumonia with associated bronchial wall thickening Recent Influenza positive - tested positive at OSH 07/14 Possible related to Influenza Pneumonia in the setting of bacterial pneumonia Completed a course of Tamiflu, 2 courses of prednisone and antibiotic outpatient CTA chest showed no evidence of PE. Moderate multifocal tree-in-bud nodules with bilateral lower lobe consolidation, greater on the left. Screen for MRSA, COVID-19 and procalcitonin negative Currently on IV Zosyn and oral azithromycin Blood culture and sputum culture negative Continue neb treatment antitussive Mucomyst added Consider to add Cipro to need saline and flutter valve if no improvement Continue incentive spirometry Leukocytosis WBC 21.9 K on admission Possible related to recent prednisone course WBC 19K today Continue monitor Wandering atrial pacemaker initial ecg concerning for afib after further review pt with at least 3 morphological p waves, appears to be com patible with wandering atrial pacemaker Admitting team discussed and reviewed EKG with Dr. Rico - no formal consult needed at this time senior report developer showed no arrhythmia Stable HLD continue statin Dvt ppx: SQ Lovenox Dispo: PCU FULL CODE PCP: Tyrone Admission and Anticipated Discharge Date Admission Date: July 20, 2021 Subjective Patient was seen and examined for follow-up of worsening cough Lying in bed with no acute distress Patient said that she continues to have a hard time to bring the phlegm up She felt like the phlegm stuck in his chest She denies any chest pain, palpitation, dizziness, shortness of breath. Review of Systems Review of Systems: All systems reviewed & are unremarkable except as noted in Subjective Physical Exam Physical Exam: General- No acute distress Head- atraumatic Eyes- PERRL, EOMI, ENT- oropharynx clear Neck- supple, no JVD Lungs- clear to auscultation, cannot stop coughing during lung auscultation Heart- regular rhythm; no murmur Abdomen- normal bowel sounds, soft, nontender Extremities- no calf tenderness Neuro- alert, oriented x 3; PERRL, EOMI; no facial palsy; no dysarthria Skin- warm & dry Results & Data Results & Data ([facility]) Vital Signs (Past 12 Hours) Vital Signs Temp Pulse Pulse Resp BP Pulse Ox 07/21/21 15:29 37.3 C 65 22 117/72 94 07/21/21 15:00 61 07/21/21 12:28 78 18 94 07/21/21 10:59 36.8 C 64 20 104/64 94 07/21/21 09:47 58 L 07/21/21 07:26 36.9 C 60 17 91/56 L 91 07/21/21 07:01 84 18 92
[2021-07-21] MEDS: AZITHROMYCIN 250 MG TAB PO SCH (20:40)
[2021-07-21] MEDS: guaiFENesin/CODEINE 100MG/10MG 5ML UDC PO SCH (20:45)
[2021-07-22] MEDS: PIPERACILLIN/TAZOBACTAM 3.375 GM in DEXTROSE 5% 100 ML IV SCH ×3 (03:01→15:47)
[2021-07-22] MEDS: TROSPIUM~ORDER AWAITING ACTION SCH ×3 (03:04→15:43)
[2021-07-22] MEDS: LEVALBUTEROL HCL 0.63 MG/3 ML NEB NEB SCH ×3 (07:06→19:25)
[2021-07-22] MEDS: ACETYLCYSTEINE 10% INHAL SOLN 4 ML **DISPENSED BY RESP. INH SCH ×2 (07:06→19:25)
[2021-07-22 08:15] LABS: Hematocrit (blood only) 35.4 % (37-47); Hemoglobin 11.5 g/dL (12.0-16.0); Mean Corpuscular Hemoglobin 28.3 pg (25-34); Mean Corpuscular Hgb Conc 32.5 g/dL (32-36); Mean Corpuscular Volume 87.2 fL (80-100); Mean Platelet Volume 8.5 fL (7.4-10.4); Platelet Count 419 K/uL (130-400); RDW Coefficient of Variation 13.7 % (11.5-14.5); Red Blood Count 4.06 M/uL (4.2-5.4); White Blood Count 13.25 K/uL (4.8-10.8)
[2021-07-22] MEDS: CALCIUM 600MG + VIT D 400 IU TAB PO SCH (08:17)
[2021-07-22] MEDS: ROSUVASTATIN CALCIUM 10 MG TAB PO SCH (08:17)
[2021-07-22] MEDS: BENZONATATE 100 MG CAPSULE PO SCH ×3 (08:17→22:43)
[2021-07-22] MEDS: ASPIRIN 81 MG ECTAB PO SCH (08:17)
[2021-07-22] MEDS: POLYETHYLENE (MIRALAX) 17 GM PACK PO SCH (08:18)
[2021-07-22] MEDS: ENOXAPARIN INJ 40 MG/0.4 ML SYR SQ SCH (10:59)
[2021-07-22 13:36] LABS: Potassium 4.1 mmol/L (3.5-5.1)
[2021-07-22] MEDS: DEXTROMETHORPHAN POLYMR COMPLX 30 MG/5 ML UDP PO PRN (14:11)
--- NOTE | 2021-07-22 16:29 | Hospitalist Progress Note ---
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 Bilateral lower lobe pneumonia with associated bronchial wall thickening Recent Influenza positive - tested positive at OSH 07/14 Possible related to Influenza Pneumonia in the setting of bacterial pneumonia Completed a course of Tamiflu, 2 courses of prednisone and antibiotic outpatient CTA chest showed no evidence of PE. Moderate multifocal tree-in-bud nodules with bilateral lower lobe consolidation, greater on the left. Screen for MRSA, COVID-19 and procalcitonin negative Currently on IV Zosyn and oral azithromycin Blood culture and sputum culture negative Continue neb treatment antitussive Continue incentive spirometry Continue Mucomyst Consider to add hypertonic saline and flutter valve if no improvement Continue incentive spirometry Leukocytosis WBC 21.9 K on admission Possible related to recent prednisone course WBC 13K today Continue monitor Wandering atrial pacemaker initial ecg concerning for afib after further review pt with at least 3 morphological p waves, appears to be compatible with wandering atrial pacemaker Admitting team discussed and reviewed EKG with Dr. Rico - no formal consult needed at this time perl developer showed no arrhythmia Stable HLD continue statin Dvt ppx: SQ Lovenox Dispo: PCU FULL CODE PCP: Tyorne Admission and Anticipated Discharge Date Admission Date: July 20, 2021 Subjective Patient was seen and examined for follow-up of worsening cough Lying in bed with no acute distress Pt said that her phlegm starting to get loose She said the Mucomyst helps her Her cough is getting better She denies any chest pain, palpitation, dizziness, shortness of breath. Review of Systems Review of Systems: All systems reviewed & are unremarkable except as noted in Subjective Physical Exam Physical Exam: General- No acute distress Head- atraumatic Eyes- PERRL, EOMI, ENT- oropharynx clear Neck- supple, no JVD Lungs- clear to auscultation, cannot stop coughing during lung auscultation Heart- regular rhythm; no murmur Abdomen- normal bowel sounds, soft, nontender Extremities- no calf tenderness Neuro- alert, oriented x 3; PERRL, EOMI; no facial palsy; no dysarthria Skin- warm & dry Results & Data Results & [facility] ([facility]) Vital Signs (Past 12 Hours) Vital Signs Temp Pulse Pulse Resp BP Pulse Ox 07/22/21 15:16 36.7 C 65 14 118/72 95 07/22/21 12:07 74 18 93 07/22/21 11:06 37.2 C 72 18 125/75 94 07/22/21 08:01 59 L 07/22/21 07:09 36.8 C 67 14 137/75 94 07/22/21 07:07 76 18 93
--- NOTE | 2021-07-22 17:07 | Electrocardiogram Report ---
Test Reason : Blood Pressure : / mmHG Vent. Rate : 068 BPM Atrial Rate : 068 BPM P-R Int : 164 ms QRS Dur : 064 ms QT Int : 404 ms P-R-T Axes : 092 033 042 degrees QTc Int : 429 ms Sinus rhythm with Premature atrial complexes Otherwise normal ECG When compared with ECG of 21-JUL-2021 06:31, Premature atrial complexes are now Present Confirmed by Chalo Salinas ([id number]) on 07/22/2021 5:07:00 PM Referred By: REFERRED SELF Confirmed By:Chalo Salinas
[2021-07-22] MEDS: guaiFENesin/CODEINE 100MG/10MG 5ML UDC PO SCH (22:43)
[2021-07-22] MEDS: AZITHROMYCIN 250 MG TAB PO SCH (22:43)
[2021-07-23] MEDS: PIPERACILLIN/TAZOBACTAM 3.375 GM in DEXTROSE 5% 100 ML IV SCH ×2 (00:18→08:20)
[2021-07-23] MEDS: LEVALBUTEROL HCL 0.63 MG/3 ML NEB NEB SCH ×3 (00:33→13:40)
[2021-07-23] MEDS: TROSPIUM~ORDER AWAITING ACTION SCH ×3 (01:13→15:55)
[2021-07-23 07:02] LABS: Hemoglobin 12.4 g/dL (12.0-16.0); Mean Corpuscular Hemoglobin 28.8 pg (25-34); Mean Corpuscular Hgb Conc 32.6 g/dL (32-36); Mean Corpuscular Volume 88.4 fL (80-100); Mean Platelet Volume 8.4 fL (7.4-10.4); Platelet Count 422 K/uL (130-400); RDW Coefficient of Variation 13.7 % (11.5-14.5); RDW Standard Deviation 44.2 fL (36.4-46.3); White Blood Count 10.79 K/uL (4.8-10.8)
[2021-07-23] MEDS: ACETYLCYSTEINE 10% INHAL SOLN 4 ML **DISPENSED BY RESP. INH SCH (07:10)
[2021-07-23] MEDS: ASPIRIN 81 MG ECTAB PO SCH (08:21)
[2021-07-23] MEDS: BENZONATATE 100 MG CAPSULE PO SCH ×2 (08:21→15:54)
[2021-07-23] MEDS: CALCIUM 600MG + VIT D 400 IU TAB PO SCH (08:22)
[2021-07-23] MEDS: ENOXAPARIN INJ 40 MG/0.4 ML SYR SQ SCH (08:22)
[2021-07-23] MEDS: POLYETHYLENE (MIRALAX) 17 GM PACK PO SCH (08:24)
[2021-07-23] MEDS: ROSUVASTATIN CALCIUM 10 MG TAB PO SCH (08:24)
--- NOTE | 2021-07-23 16:03 | Discharge Summary ---
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 Patient developed lower respiratory symptoms on 06/25/2021. She developed a dry cough, shortness with exertion and chills. Over the last 4 weeks she has seen providers and was treated with 2 courses of prednisone as well as antibiotic. She does not recall the name of the antibiotic. She has a known sick contact with her . Her was recently hospitalized for influenza. Patient also subsequently tested positive for influenza on 07/14. She then completed a course of Tamiflu. She denies any documented fever but complains of being chilled. She denies any sweats, lightheadedness, dizziness, syncope, chest pain, hemoptysis, shortness of breath at rest, nausea, vomiting, abdominal pain, change in bowel or urinary habits. She is constipated at baseline and takes MiraLAX on a regular basis. Overall she feels generally fatigued and weak from coughing. She also complains of chest soreness from coughing but no chest pain at rest. She states she gets bronchitis every year. In ED initially she was tachycardic and EKG was initially read as atrial fibrillation. She had a leukocytosis of 20 1.93K with a left shift. Her CMP was generally unremarkable. Her initial high-sensitivity troponin was elevated at 14.1. She tested negative for SARS-CoV-2 and influenza. Her chest CTA was negative for PE but did reveal moderate multifocal tree-in-bud nodules with bilateral lower lobe consolidation greater on the left. Concern for infectious process or possible aspiration pneumonitis. She was started on antibiotics and plan was to pt to d/c to home. Initial ecg read afib and she was given metoprolol and eliquis. However after further review it appears it is MAT and not actually afib. Admission Exam Per Admitting Provider Constitutional: WD/WN, Thin, vitals as above, NAD, sitting up in bed, pleasant, conversing easily Head: Normocephalic, Atraumatic Eyes: PERRL, conjunctivae normal, anicteric sclerae ENMT: external ear and nose normal, oropharynx normal Neck: trachea midline, no thyromegaly normal visual inspection Respiratory: +harsh cough on exam, normal respiratory effort, lungs clear to auscultation, no wheeze, rales, rhonchi. Normal insp/exp effort, no accessory muscle use Cardiovascular: RRR, no murmur, no edema Vessels: no JVD or carotid bruit Chest: normal inspection of chest Abdomen: normal bowel sounds, soft, nontender, no hepatosplenomegaly Musculoskeletal: no cyanosis or clubbing, extremities motor strength 5/5 Skin: no rashes, warm and dry normal turgor Neurologic: PERRL, EOMI, accommodation nl, no face palsy, no dysarthria CN's II-XI intact bilaterally and moves all extremities Psychiatric: A+Ox3, euthymic affect Lymphatic: no cervical or axillary lymphadenopathy : deferred Principal Diagnosis (1) Bilateral pneumonia: (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: (3) Influenza: (4) Leukocytosis: (5) HLD (hyperlipidemia): Discharge Exam General- No acute distress Head- atraumatic Eyes- PERRL, EOMI, ENT- oropharynx clear Neck- supple, no JVD Lungs- clear to auscultation, cannot stop coughing during lung auscultation Heart- regular rhythm; no murmur Abdomen- normal bowel sounds, soft, nontender Extremities- no calf tenderness Neuro- alert, oriented x 3; PERRL, EOMI; no facial palsy; no dysarthria Skin- warm & dry Discharge Data Allergies Allergy/AdvReac Type Severity Reaction Status Date / Time metronidazole [From Flagyl] Allergy Severe hives Verified 07/20/21 16:47 Consultations 07/20/21 16:19 ED Decision to Admit Stat Ordered Studies 07/20/21 09:17 CT angio chest PE protocol Stat CT ANGIOGRAPHY OF THE CHEST, PULMONARY EMBOLUS PROTOCOL CLINICAL HISTORY: Shortness of breath. Evaluate for pulmonary embolus. COMPARISON STUDY: Chest radiograph performed earlier today. TECHNIQUE: Following IV administration of 120 mL of Optiray, helical axial images of the chest were obtained utilizing the pulmonary embolus protocol. Maximal intensity projections and sagittal and coronal reformats were viewed on an independent 3D workstation. IV contrast was administered without complication. Automated exposure control was utilized for the study. A dose lowering technique was utilized adhering to the principles of ALARA. CT DOSE: 245.46 mGycm FINDINGS: No pulmonary emboli are identified. The size of the heart is normal. There is no thoracic aortic dissection. No enlarged thoracic lymph nodes are present. No pneumomediastinum is present. There is no pneumothorax or pleural effusion. Moderate multifocal tree-in-bud nodules are noted with more confluent consolidation within the left lower lobe. There is bilateral lower lobe and right middle lobe bronchial wall thickening and multifocal secretions. No cavitation is present. No acute fracture or suspicious lesion within the visualized bony thorax. There is a 2.3 cm hepatic cyst. IMPRESSION: 1. No pulmonary emboli identified. 2. Moderate multifocal tree-in-bud nodules with bilateral lower lobe consolidation, greater on the left. Associated bronchial wall thickening and secretions within the bilateral lower lobe and right middle lobe bronchi. The findings favor an infectious process. Other etiologies such as aspiration pneumonitis are within the differential but considered less likely. ACT 112: Negative or not required by law. Electronically signed by: Mike Mendosa M.D. 07/20/2021 12:02 PM Dictated:07/20/21 1148 Transcribed: 07/20/21 1148 XR chest 1V portable CLINICAL HISTORY: Dysrhythmia TECHNIQUE: Single frontal radiograph of the chest was obtained. Comparison: None available at the time of this dictation. FINDINGS: No lines and tubes are seen. Calcified aortic knob is seen. The lungs are clear. No evidence of pleural effusion or pneumothorax. IMPRESSION: No acute chest disease. ACT 112: Negative or not required by law. Electronically signed by: Rick Wade M.D. 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 Bilateral lower lobe pneumonia with associated bronchial wall thickening Recent Influenza positive - tested positive at OSH 07/14 Possible related to Influenza Pneumonia in the setting of bacterial pneumonia Completed a course of Tamiflu, 2 courses of prednisone and antibiotic outpatient CTA chest showed no evidence of PE. Moderate multifocal tree-in-bud nodules with bilateral lower lobe consolidation, greater on the left. Screen for MRSA, COVID-19 and procalcitonin negative Currently on IV Zosyn and oral azithromycin Blood culture and sputum culture negative Continue neb treatment antitussive Continue incentive spirometry Continue Mucomyst Consider to add hypertonic saline Continue incentive spirometry and flutter valve Leukocytosis WBC 21.9 K on admission Possible related to recent prednisone course WBC normalizes at 10.7 Stable Wandering atrial pacemaker initial ecg concerning for afib after further review pt with at least 3 morphological p waves, appears to be compatible with wandering atrial pacemaker Admitting team discussed and reviewed EKG with Dr. 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 Hansen on 07/29/21 @ 9:15 AM Continue incentive spirometry and flutter valve Continue nebulizer treatment as needed Complete the course of the antibiotic with Augmentin Fall precaution Seek medical attention if your symptoms worsening or develop any shortness of breath Pending Studies at Discharge: No Stand-Alone Forms: My [employer], Smoking Cessation Medications and DC Order Prescriptions: New levalbuterol HCl 0.63 mg/3 mL Solution For Nebulization 0.63 mg NEB Q6R PRN (Reason: SOB/wheezing) Qty: 90 RF: 0 amoxicillin-pot clavulanate 875-125 mg tablet 1 tab PO BID 4 Days Qty: 8 RF: 0 guaifenesin 200 mg tablet 200 mg PO TID PRN (Reason: congestion) Qty: 30 RF: 0 Continued polyethylene glycol 3350 [Miralax] 17 gram Powder In Packet 17 g PO DAILY RF: 0 calcium carbonate-vitamin D3 600 mg-5 mcg (200 unit) Tablet 1 tab PO DAILY RF: 0 aspirin 81 mg Tablet,Delayed Release (Dr/Ec) 81 mg PO DAILY RF: 0 coenzyme Q10 [CoQ-10] 30 mg Capsule 100 mg PO DAILY RF: 0 rosuvastatin 10 mg tablet 10 mg PO DAILY RF: 0 trospium 60 mg capsule,extended release 24hr 60 mg PO DAILY RF: 0 [id number] [MegaRed [place]-3 Krill Oil] 1,000-230-60 mg Capsule 1 cap PO DAILY RF: 0 Colon Health Probiotic 1 tab PO DAILY RF: 0 Prevagen 1 tab PO DAILY RF: 0 Discharge Orders: Discharge Order (Routine); Ordered 07/23/21 Ordered By: Lesley Lopez Admission Data Admit Date/Time: 07/20/21 16:52 Attending Provider: Lesley Lopez Admit Provider: Antonia Beltran Primary Care Provider: Crystal Hansen Other Providers: Antonia Beltran Other Interventions: Discharge Summary Assessment (RN) Last Done: 07/23/21 16:07
[2021-07-23] MEDS ORDERED: AMOXICILLIN/CLAVULANATE 875 MG TAB PO SCH (17:00)
== END 2021-07-23 17:16 | disposition home or self-care (01) | DRG 195 ==
LOC: ED 07:57 → SUATTDRO 16:52 → INTOOBSV 16:52 → 2E 16:52